=== PATIENT | female | born 1985 | race Two or more races ===

== ENCOUNTER 2022-10-28 21:20 | Emergency (ER) | payer BC ==
[~2022-10-28] VITALS: Ht 177.8 cm; Wt 104.5 kg
[2022-10-28 22:39] VITALS: BP 120/81
[2022-10-28] MEDS ORDERED: IBUPROFEN 600 MG TAB PO ONE (22:45)
[2022-10-29] MEDS ORDERED: AMOX500T3 PO (02:26)
== END 2022-10-29 02:54 | disposition home or self-care (01) ==
LOC: ER 21:20
DX: J03.90 Acute tonsillitis, unspecified (principal); Z20.822 Contact with and (suspected) exposure to COVID-19
CPT/HCPCS: 36415; 87426; 87804